=== PATIENT | male | born 1965 | race Caucasian/White ===

== ENCOUNTER 2020-01-17 01:23 | Emergency (ER) | payer OTHER ==
--- NOTE | 2020-01-17 01:26 | PDOC ---
History of Present Illness - General Chief Complaint: Bite Stated Complaint: TICK BITE Time Seen by Provider: 01/17/20 01:25 History Source: Patient Exam Limitations: No Limitations - History of Present Illness Initial Comments: 01/17/20 01:25 HPI 54 YOM h/o gout, HTN, HLD, Lyme presenting with tick bite to his abdomen, which he noticed approx 1230am today. pt states he was hiking in [place] 1 day ago this past weekend. He only noticed the tick this evening, pt tried to remove the tick, but was done incompletely. he tried to shave the area and his son removed a tick (unknown if it was engorged), may have left either leg or pincer behind. Denies fever, chills, chest pain, SOB, palpitation, dizziness, weakness, N, V, D, abdominal pain, bladder and bowel problems, focal weakness/paresthesias, leg swelling/pain, rash. Allergies: pcn, sulfa Past Medical History/PSH: as above Social history: Lives with family. No tobacco, ETOH or drug use. Meds: as documented in EMR Review of systems Constitutional: no fevers or chills. No weakness HEENT: no headache or dizziness. No congestion. No visual/hearing disturbances. CVS: no cp or syncope. Resp: no sob. No cough. Gastrointestinal: no abdominal pain, nausea, vomiting, diarrhea. Genitourinary: no urinary sx, hematuria. MUSCULOSKELETAL: No joint pain and swelling. No neck or back pain. SKIN: no redness or skin changes, no discharge, no rash. +tick bite, + wound Hematologic: no easy bruising/bleeding. NEUROLOGIC: No headache, dizziness, LOC or altered mental status. No weakness, numbness or tingling. Psych: no anxiety or depression Allergic/Immunologic: med allergies All other systems reviewed and negative, or as documented in HPI. Physical exam General: Well appearing, awake and alert, NAD. HEENT: NCAT, PERRL, EOMI, clear conjunctiva, anicteric, moist mucus membranes, clear oropharynx, no oral lesions.. Neck: neck supple, FROM Resp: CTAB, normal and even respirations, no respiratory distress CVS: RRR, no murmurs, 2+ peripheral pulses throughout, no peripheral edema Abdomen: soft, NTND, no rebound or guarding. Back: nontender, normal inspection and ROM MSK: no edema, GUALLPA x4, ROM intact. No clubbing or cyanosis. normal bulk and tone. Neuro: alert Psych: Calm and cooperative Skin: warm and well perfused, cap refill <2 sec, normal color, +left lower abdomen wall with area of irritation, no FB seen, area of skin erosion s/p shaving. no purulence. no ticks. 01/17/20 01:48 Past History - Past Medical History Allergies/Adverse Reactions: Allergies Allergy/AdvReac Type Severity Reaction Status Date / Time Penicillins Allergy Verified 01/17/20 01:26 sulfur [From Sulfur-8] Allergy Verified 01/17/20 01:26 Home Medications: Ambulatory Orders Allopurinol [Zyloprim -] 100 mg PO DAILY 01/17/20 Colchicine 0.6 mg PO DAILY 01/17/20 Medical Decision Making - Medical Decision Making 01/17/20 01:52 Vital Signs Temp Pulse Resp BP Pulse Ox 98.7 F 81 16 173/103 H 100 01/17/20 01:29 01/17/20 01:29 01/17/20 01:29 01/17/20 01:29 01/17/20 01:29 vs reviewed, +HTN, established but pt also anxious and nervous with tick bite clinical recheck with primary left lower abdominal area applied with lidocaine, explored, likely embedded hair follicle. no FB or tick seen. does not look infected. no pincer or tick extremity removed or visualized doxycycline 200mg x1 now given tick exposure and lyme ppx DC stable condition, topical bacitracin and bandaid, wound care instructions, tick avoidance and safety measures when hiking return precautions advised 01/17/20 01:53 Discharge - Discharge Information Problems reviewed: Yes Clinical Impression/Diagnosis: Tick bite of abdomen Qualifiers: Encounter type: initial encounter Qualified Code(s): S30.861A - Insect bite (nonvenomous) of abdominal wall, initial encounter Condition: Stable Disposition: HOME - Admission No - Follow up/Referral - Patient Discharge Instructions Patient Printed Discharge Instructions: How to Remove a Tick, Protect Yourself from Tickborne Illnesses - Post Discharge Activity
[2020-01-17 01:33] VITALS: BP 173/103; PULSE 81; TEMP 98.7; BMI 38.7
[2020-01-17] MEDS ORDERED: DOXYCYCLINE HYCLATE 100 MG CAPSULE PO ONE ×2 (01:47)
== END 2020-01-17 01:52 | disposition home or self-care (01) ==
LOC: FER 01:23
DX: S30.861A Insect bite (nonvenomous) of abdominal wall, initial encounter (principal); I10 Essential (primary) hypertension; E78.5 Hyperlipidemia, unspecified; A69.20 Lyme disease, unspecified; Z88.0 Allergy status to penicillin; Z88.8 Allergy status to other drugs, medicaments and biological substances
CPT/HCPCS: 99283-25